=== PATIENT | female | born 1970 | race Caucasian/White ===

== ENCOUNTER 2017-01-24 14:56 | Emergency (ER) | payer OTHER ==
[2017-01-24 15:26] VITALS: BP 148/86
--- NOTE | 2017-01-24 16:48 | ED ---
Throat Pain/Nasal Congestion - HPI Summary HPI Summary: 46 yr old female with the complaint of right ear pain. Onset three days ago. Prior to this she has had runny nose, sinus pressue, cough, and also a UTI and was put on keflex Friday this week. yesterday her PMD called in cefdinir for ther right ear pain. The patient rates pain 9/10 right ear, and associated decreased hearing in that ear. She feels like she has an ear infection that may cause TM rupture. She has had TM rupture before. She would like another antibiotics since 3 dose of cefdinir has not made it better yet. She has allergies to amox and bactrim. - History of Current Complaint Chief Complaint: UCEar Time Seen by Provider: 01/24/17 16:02 - Allergies/Home Medications Allergies/Adverse Reactions: Allergies Allergy/AdvReac Type Severity Reaction Status Date / Time Amoxicillin Allergy Severe Hives Verified 01/24/17 15:19 Bee Venom Allergy Hives Verified 01/24/17 15:19 Sulfamethoxazole Allergy Itching Verified 01/24/17 15:19 w/Trimethoprim [From Bactrim] Home Medications: Home Medications Cefdinir [Cefdinir 300 MG CAP] 1 cap BID 01/24/17 [History Confirmed 01/24/17] Cephalexin CAP* [Keflex CAP*] 500 mg PO BID 01/24/17 [History Confirmed 01/24/17 ] Epinephrine [Epipen 2-Deep] 1 inj ONCE 01/24/17 [History Confirmed 01/24/17] PMH/Surg Hx/FS Hx/Imm Hx - Surgical History Surgery Procedure, Year, and Place: RIGHT ankle x2 Infectious Disease History: No Infectious Disease History: Denies: Traveled Outside the [place] in Last 30 Days - Family History Known Family History: Positive: Cardiac Disease, Diabetes - Social History Occupation: Employed Full-time Alcohol Use: Occasionally Substance Use Type: Reports: None Smoking Status (MU): Current Every Day Smoker Type: Cigarettes Amount Used/How Often: 1 PPD Review of Systems Negative: Fever, Chills Positive: Ear Ache, Nasal Discharge All Other Systems Reviewed And Are Negative: Yes Physical Exam Triage Information Reviewed: Yes Vital Signs On Initial Exam: Initial Vitals Temp Pulse Resp BP Pulse Ox 98.6 F 89 16 148/86 99 01/24/17 15:21 12/15/17 15:21 01/24/17 15:21 01/24/17 15:21 01/24/17 15:21 Vital Signs Reviewed: Yes Appearance: Positive: Well-Appearing Skin: Positive: Warm, Skin Color Reflects Adequate Perfusion Head/Face: Positive: Normal Head/Face Inspection Eyes: Positive: EOMI ENT: Positive: Pharyngeal erythema, TM bulging - right, TM red - right, Uvula midline Neck: Positive: Nontender Respiratory/Lung Sounds: Positive: Clear to Auscultation, Breath Sounds Present Cardiovascular: Positive: RRR. Negative: Murmur Abdomen Description: Positive: Nontender Musculoskeletal: Positive: Strength/ROM Intact Neurological: Positive: Sensory/Motor Intact, Alert, Oriented to Person Place, Time, CN Intact II-III, Normal Gait, Speech Normal Psychiatric: Positive: Normal - [place] Coma Scale Best Eye Response: 4 - Spontaneous Best Motor Response: 6 - Obeys Commands Best Verbal Response: 5 - Oriented Diagnostics - Vital Signs Vital Signs Temp Pulse Resp BP Pulse Ox 01/24/17 15:21 98.6 F 89 16 148/86 99 - Laboratory Lab Statement: Any lab studies that have been ordered have been reviewed, and results considered in the medical decision making process. EENT Course/Dx - Course Course Of Treatment: 46 yr old female with right OM. Cefdinir is what she is presently on for three doses. I am going to add Biaxin to the regimen. She is aware bert tif her TM perforates she needs to go to the ER. She will be given referral to ENT as well. - Diagnoses Provider Diagnoses: Otitis media, Hypertension Discharge - Discharge Plan Condition: Good Disposition: HOME Prescriptions: Clarithromycin TAB* [Biaxin 500 MG TAB*] 500 mg PO BID #20 tab Patient Education Materials: Otitis Media (ED), Hypertension (ED) Referrals: Tee Duarte MD [Medical Doctor] - 3 Days Solomon Aleman DO [Primary Care Provider] - 2 Days
--- OUTSIDE RECORDS SUMMARY | 2017-01-27 09:32 | XMS REPORT ---
:1970 External Reference #:[id number] Author Organization [facility] Address [address] [address] Phone [phone] Care Team Providers Name Role Phone Solomon Aleman DO Care Team Information Prison Classification Counselor Unavailable Payers Type Date Identification Numbers Payment Provider Subscriber Health Maintenance Policy Number: [id number] [facility] Marleny Hernandez Organization ([facility]: [id number] [address] [place] [address] Problems Date Description Provider Status Onset: 05/29/2011 Mixed hyperlipidemia Solomon Aleman DO Active Onset: 10/04/2010 Tobacco user Solomon Aleman DO Active Onset: 10/04/2010 Anxiety state Solomon Aleman DO Active Social History Type Date Description Comments Education Hightest level completed, 1 year of college Marital Status Single Occupation 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 active 04/15/2014 Bee Sting active Medications Medication Date Status Form Strength Qnty SIG Indications Ordering Provider Cephalexin 01/21/ Active Capsules 500mg 20cap 1 capsule Harpreet Aleman s by mouth katie Carbajal DO daily for 10 days Bupropion HCL 11/10/ Active Tablets 100mg 180ta 1 by F33.9 Ash 2016 bs mouth Solomon, twice a DO day Famciclovir 12/20/ Active Tablets 500mg 21tab 3 pills B00.1 Ash 2016 s at once Solomon, at onset DO of symptoms Epinephrine 08/19/ Active Solution 0.3mg/0.3 2unit use as . Zora , 2016 Auto-Inject ML s directed diana Davis PA allergic reaction Hydroxyzine HCL 07/19/ Active Tablets 10mg 30tab 1 tablet F41.9 Ash 2016 s by mouth Solomon, at night DO Ibuprofen 10/04/ Active Tablets 200mg 2 po q 4 Ash 2010 hours prn Solomon DO Diphenhydramine 10/04/ Active Tablets 25mg VALDO Aleman 2010 Solomon, DO Coconut Oil / Active Oil Unknown 0000 Flaxseed / Active Misc Unknown 0000 Escitalopram 08/19/ Hx Tablets 10mg 60tab 2 by F41.9 Zora Oxalate 2017 - s mouth Susan, 08/19/ every day PA 2016 Escitalopram 08/19/ Hx Tablets 20mg 30tab 1 tablet F33.9 Ash, Oxalate 2017 - s by mouth Solomon, 12/20/ daily DO 2016 Escitalopram 07/19/ Hx Tablets 10mg 30tab 1 tablet F41.9 Zora, Oxalate 2017 - s by mouth Susan, 08/19/ once PA 2016 daily Fluticasone 02/17/ Hx Suspension 50mcg/Act 16gm 1 spray J01.90 Ash, Propionate 2015 - each Solomon, 02/27/ nostril DO 2015 twice a day Doxycycline 02/17/ Hx Capsules 100mg 20cap 1 by J01.90 Ash, Hyclate 2015 - s mouth Solomon, 02/27/ twice a DO 2015 day x 10 days Cyclobenzaprine 10/12/ Hx Tablets 5mg 60tab take 1 - Ash HCL 2013 - s 2 tablets Solomon, 07/19/ by mouth DO 2016 every night at bedtime as needed muscle spasm- caution sedation Epinephrine 08/31/ Hx Solution 0.3mg/0.3 1Unit use as Zora 2012 - Auto-Inject ML s needed Susan 08/10/ for bee PA 2017 stings Immunizations CPT Code Status Date Vaccine Reaction Lot # 33581 Given 12/20/2016 Influenza Vac, 3 Yrs & Older, Quadrivalent, [place] [address] Given 01/05/2014 Afluria Or Fluvirin Flu Vac Intramuscular [facility] 41234 Given 11/12/2011 Afluria Or Fluvirin Flu Vac Intramuscular 56755 Given 10/04/2010 Tdap (Adacel) Ages 7 And Above Only Vital Signs Date Vital Result Comment 01/21/2017 Weight 214.00 lb Heart Rate 74 /min BP Systolic 132 mmHg BP Diastolic 70 mmHg Respiratory Rate 18 /min Height 66.75 inches 5'6.75" 09/19/16 BMI (Body Mass Index) 33.8 kg/m2 12/20/2016 Weight 212.00 lb Heart Rate 72 /min BP Systolic 126 mmHg BP Diastolic 74 mmHg Respiratory Rate 18 /min Height 66.75 inches 5'6.75" 09/19/16 BMI (Body Mass Index) 33.4 kg/m2 09/19/2016 Weight 201.00 lb Heart Rate 80 /min BP Systolic 112 mmHg BP Diastolic 70 mmHg Respiratory Rate 18 /min Height 66.75 inches 5'6.75" 09/19/16 BMI (Body Mass Index) 31.7 kg/m2 08/19/2016 Weight 198.00 lb Heart Rate 72 /min BP Systolic 132 mmHg BP Diastolic 72 mmHg Respiratory Rate 18 /min Height 66.75 inches 5'6.75" BMI (Body Mass Index) 31.2 kg/m2 07/19/2016 Weight 192.00 lb Heart Rate 92 /min BP Systolic 172 mmHg BP Diastolic 92 mmHg Respiratory Rate 18 /min Height 66.75 inches 5'6.75" BMI (Body Mass Index) 30.3 kg/m2 02/17/2015 Body Temperature 99.5 F Weight 195.00 lb Heart Rate 110 /min BP Systolic 130 mmHg BP Diastolic 80 mmHg Respiratory Rate 18 /min Height 66.75 inches 5'6.75" (10/2013) O2 % BldC Oximetry 97 % BMI (Body Mass Index) 30.8 kg/m2 04/18/2014 Weight 192.00 lb Heart Rate 72 /min BP Systolic 120 mmHg BP Diastolic 80 mmHg Respiratory Rate 18 /min Height 66.75 inches 5'6.75" (10/2013) BMI (Body Mass Index) 30.3 kg/m2 10/12/2013 Weight 189.00 lb Heart Rate 100 /min BP Systolic 132 mmHg BP Diastolic 84 mmHg Respiratory Rate 18 /min Height 66.75 inches 5'6.75" (10/2013) 08/16/2013 Body Temperature 98.0 F Weight 190.00 lb Heart Rate 70 /min BP Systolic 130 mmHg BP Diastolic 80 mmHg Respiratory Rate 18 /min Height 66.75 inches 5'6.75" 08/09/2013 Body Temperature 98.6 F Weight 191.00 lb Heart Rate 70 /min BP Systolic 140 mmHg BP Diastolic 72 mmHg Respiratory Rate 18 /min Height 66.75 inches 5'6.75" 08/05/2013 Body Temperature 99.2 F Weight 193.00 lb Heart Rate 72 /min BP Systolic 130 mmHg BP Diastolic 78 mmHg Respiratory Rate 18 /min Height 66.75 inches 5'6.75" 07/28/2013 Weight 190.00 lb Heart Rate 100 /min BP Systolic 166 mmHg BP Diastolic 80 mmHg Respiratory Rate 18 /min Height 66.75 inches 5'6.75" 06/09/2013 Body Temperature 99.3 F Weight 195.00 lb Heart Rate 88 /min BP Systolic 130 mmHg BP Diastolic 80 mmHg Respiratory Rate 18 /min Height 66.75 inches 5'6.75" 11/06/2012 Body Temperature 97.8 F Weight 184.44 lb Heart Rate 130 /min BP Systolic 128 mmHg BP Diastolic 84 mmHg Respiratory Rate 18 /min Height 66.75 inches 5'6.75" O2 % BldC Oximetry 95 % 08/31/2012 Body Temperature 99.0 F Weight 183.00 lb Heart Rate 84 /min BP Systolic 130 mmHg BP Diastolic 80 mmHg Respiratory Rate 18 /min Height 66.75 inches 5'6.75" 12/05/2011 Weight 176.12 lb Heart Rate 84 /min BP Systolic 128 mmHg BP Diastolic 82 mmHg Respiratory Rate 16 /min Height 66.75 inches 5'6.75" 05/29/2011 Weight 181.50 lb Heart Rate 90 /min BP Systolic 106 mmHg BP Diastolic 74 mmHg Respiratory Rate 16 /min Height 66.75 inches 5'6.75" 11/09/2010 Weight 181.12 lb Heart Rate 108 /min BP Systolic 100 mmHg BP Diastolic 70 mmHg Respiratory Rate 17 /min Height 66.75 inches 5'6.75" 10/04/2010 Weight 185.25 lb BP Systolic 132 mmHg BP Diastolic 86 mmHg Respiratory Rate 17 /min Height 66.75 inches 5'6.75" Results Test Date Test Result H/L Range Note Laboratory test 01/21/2017 Cytology Fluid <pending> finding Specimen -RL Laboratory test 01/21/2017 Urine Culture <pending> finding CBC With Auto Diff 07/19/2016 WBC 11.6 K/uL High 4.1-11.0 1 RBC 4.72 M/uL 4.00-5.40 1 Hemoglobin 14.8 gm/dL 12.0-16.0 1 Hematocrit 43.6 % 36.0-47.0 1 MCV 92.3 fL 80.0-97.0 1 MCH 31.4 pg 27.0-32.0 1 MCHC 34.0 g/dL 32.0-36.0 1 RDW 13.4 % 11.5-14.5 1 PLT Count 369 K/ul 140-400 1 Neutrophil 63.7 % 35.0-75.0 1 Lymphocyte 29.5 % 16.0-52.0 1 Monocyte 5.1 % 2.0-10.0 1 Eosinophil 1.0 % 0.0-5.0 1 Basophil 0.7 % 0.0-4.0 1 Abs Neutrophils 7.4 K/uL 2.1-8.0 1 Abs Lymphocytes 3.4 K/uL 0.8-5.5 1 Abs Monocytes 0.6 K/uL 0.1-1.0 1 Abs Eosinophils 0.1 K/uL 0.0-0.5 1 Abs Basophils 0.1 K/uL 0.0-0.3 1 Comprehensive Metabolic (CMP) 07/19/2016 Sodium 143 mmol/L 135-146 1, 2 Potassium 4.5 mmol/L 3.5-5.2 1 Chloride# 109 mmol/L 97-110 1, 3 Carbon Dioxide 24 mmol/L 24-34 1 Glucose 109 mg/dL High 70-105 1 BUN 13 mg/dL 6-26 1 Creatinine 0.8 mg/dL 0.5-1.4 1 Calcium 9.7 mg/dL 8.5-10.2 1 Total Protein 7.3 g/dL 6.0-8.0 1 Albumin 4.5 g/dL 3.6-4.9 1 Globulin 2.8 g/dL 2.0-3.5 1 A/G Ratio 1.6 Ratio 1.0-2.2 1 Total Bilirubin 0.4 mg/dL 0.1-1.3 1 Alkaline Phosphatase 66 U/L 24-140 1 Alt 28 U/L 3-42 1 Ast 15 U/L 8-42 1 Dayana Egfr >60 >60 1, 4 Non Dayana Egfr >60 >60 1, 5 Anion Gap 15 mmol/L 7-16 1, 6 Lipid Treatment 04/11/2014 Cholesterol 253 mg/dL High 50-199 7 Triglycerides 107 mg/dL 30-200 7 HDL 43 mg/dL 35-85 7, 8 Chol/ HDL Ratio 5.9 ratio High 3.7-5.6 7 VLDL 21 mg/dL 2-29 7 LDL (Calc) 189 mg/dL High 20-99 7, 9 Alt 16 U/L 3-42 7 Ast 24 U/L 8-42 7 Laboratory test finding 10/12/2013 Cortisol,Am 8.67 g/dL 4.30-22.40 10 Folate > 20 ng/mL High 6.0-15.4 11 TSH 0.50 uIU/ml 0.50-6.00 Vitamin B12 429.0 pg/mL 200.0-900.0 Laboratory test finding 10/05/2013 % Baso. 1.3 % 0.0-2.0 % Eos. 1.1 % 0.0-4.0 % Lymph 30 % 20-44 % Crane 6.5 % 2.0-10.0 % Bianca 61 % 50-70 Absolute Baso. 0.1 K/ul 0.0-0.3 Absolute Eos. 0.1 K/ul 0.0-0.5 Absolute Lymph. 2.9 K/ul 0.8-4.8 Absolute Crane. 0.6 K/ul 0.1-1.0 Absolute Bianca. 5.91 K/ul 2.05-7.63 Alt 26.0 U/L 9.0-52.0 Antinuclear Abs Ifa Negative . 12 Ast 17.0 U/L 14.0-36.0 BUN 9.0 mg/dL 7.0-18.0 BUN/Creat Ratio 12.9 ratio 12.0-20.0 C-Reactive Protein,Quant < 2.9 mg/L 0.0-4.9 13 Calcium 9.2 mg/dL 8.7-10.5 Chloride 107.0 mmol/L 98.0-107.0 Co2 21.0 mmol/L Low 22.0-30.0 Creatinine-Serum 0.7 mg/dL 0.7-1.2 Esr Sedrate 21.0 sec 0.0-25.0 Glucose 101.0 mg/dL 75.0-110.0 HCT 41.3 % 37.0-51.0 HGB 14.9 Gm/dl 12.0-16.0 MCH 32.2 pg High 26.0-32.0 MCHC 36.1 g/dL High 31.0-36.0 MCV 89.2 Fl 80.0-97.0 MPV 5.2 fL Low 6.0-10.0 PLT 404 K/ul 140-440 Potasium 4.1 mmol/L 3.6-5.0 RBC 4.6 M/ul 4.2-6.3 RDW 12.0 % 11.5-14.5 Sodium 140.0 mmil/L 137.0-145.0 WBC 9.6 K/ul 4.1-10.9 eGFR 97.1 Lipid Panel 10/05/2013 Chol/HDL Ratio 6.6 ratio Cholesterol 251.0 mg/dL High 50.0-199.0 HDL 38.0 mg/dL 29.0-86.0 LDL, Calculated 178.0 mg/dL High 20.0-129.0 Triglycerides 175.0 mg/dL 30.0-249.0 vLDL 35.0 ng/dL Laboratory test finding 08/16/2013 % Baso. 1.0 % 0.0-2.0 % Eos. 1.0 % 0.0-4.0 % Lymph 31 % 20-44 % Crane 5.3 % 2.0-10.0 % Bianca 62 % 50-70 A/G Ratio 1.5 ratio Low 1.6-2.2 Absolute Baso. 0.1 K/ul 0.0-0.3 Absolute Eos. 0.1 K/ul 0.0-0.5 Absolute Lymph. 3.3 K/ul 0.8-4.8 Absolute Crane. 0.6 K/ul 0.1-1.0 Absolute Bianca. 6.68 K/ul 2.05-7.63 Albumin 4.5 g/dL 3.5-5.0 Alk. Phos. 74.0 U/L 30.0-126.0 Alt 19.0 U/L 9.0-52.0 Anion Gap 9.0 mmol/L Low 10.0-20.0 Ast 16.0 U/L 14.0-36.0 BUN 10.0 mg/dL 7.0-18.0 BUN/Creat Ratio 14.3 ratio 12.0-20.0 Calcium 9.2 mg/dL 8.7-10.5 Chloride 110.0 mmol/L High 98.0-107.0 Co2 20.0 mmol/L Low 22.0-30.0 Creatinine-Serum 0.7 mg/dL 0.7-1.2 Esr Sedrate 15.0 sec 0.0-25.0 Globulin 3.0 g/dL 2.7-4.3 Glucose 77.0 mg/dL 75.0-110.0 HCT 44.1 % 37.0-51.0 HGB 15.4 Gm/dl 12.0-16.0 MCH 31.7 pg 26.0-32.0 MCHC 34.9 g/dL 31.0-36.0 MCV 91.0 Fl 80.0-97.0 MPV 5.1 fL Low 6.0-10.0 PLT 439 K/ul 140-440 Potasium 4.5 mmol/L 3.6-5.0 RBC 4.8 M/ul 4.2-6.3 RDW 11.6 % 11.5-14.5 Sodium 139.0 mmil/L 137.0-145.0 Total Bilirubin 0.3 mg/dL 0.2-1.3 Total Protein 7.5 g/dL 6.3-8.2 WBC 10.8 K/ul 4.1-10.9 eGFR 104.1 mi/minper1.73 14 Rheumatoid Factor Screen Negative Negative Antinuclear Abs Ifa 08/16/2013 Antinuclear Antibodies, Ifa See patterns . 15 Note See Note 16 Speckled Pattern 1:80 . Laboratory test finding 08/16/2013 Rheumatoid Factor Negative Negative Screen Antinuclear Abs Ifa 08/16/2013 Antinuclear Antibodies, See patterns . 17 Ifa Note See Note 18 Speckled Pattern 1:80 . Laboratory test finding 08/09/2013 % Baso. 0.9 % 0.0-2.0 % Eos. 0.7 % 0.0-4.0 % Lymph 19 % Low 20-44 % Crane 4.3 % 2.0-10.0 % Bianca 75 % High 50-70 A/G Ratio 1.5 ratio Low 1.6-2.2 Absolute Baso. 0.1 K/ul 0.0-0.3 Absolute Eos. 0.1 K/ul 0.0-0.5 Absolute Lymph. 2.2 K/ul 0.8-4.8 Absolute Crane. 0.5 K/ul 0.1-1.0 Absolute Bianca. 8.30 K/ul High 2.05-7.63 Albumin 4.4 g/dL 3.5-5.0 Alk. Phos. 80.0 U/L 30.0-126.0 Alt 19.0 U/L 9.0-52.0 Anion Gap 12.0 mmol/L 10.0-20.0 Ast 15.0 U/L 14.0-36.0 BUN 10.0 mg/dL 7.0-18.0 BUN/Creat Ratio 12.5 ratio 12.0-20.0 Calcium 9.4 mg/dL 8.7-10.5 Chloride 105.0 mmol/L 98.0-107.0 Co2 20.0 mmol/L Low 22.0-30.0 Creatinine-Serum 0.8 mg/dL 0.7-1.2 Globulin 2.9 g/dL 2.7-4.3 Glucose 182.0 mg/dL High 75.0-110.0 HCT 43.0 % 37.0-51.0 HGB 14.9 Gm/dl 12.0-16.0 MCH 32.0 pg 26.0-32.0 MCHC 34.6 g/dL 31.0-36.0 MCV 92.6 Fl 80.0-97.0 MPV 5.1 fL Low 6.0-10.0 PLT 360 K/ul 140-440 Potasium 4.4 mmol/L 3.6-5.0 RBC 4.6 M/ul 4.2-6.3 RDW 12.0 % 11.5-14.5 Sodium 137.0 mmil/L 137.0-145.0 Total Bilirubin 0.5 mg/dL 0.2-1.3 Total Protein 7.3 g/dL 6.3-8.2 WBC 11.1 K/ul High 4.1-10.9 eGFR 90.4 mi/minper1.73 19 Laboratory test finding 07/28/2013 Antibody Detection See Note 20 FSH 11.0 mIU/mL 21 Luteinizing Hormone 30.6 mIU/mL 22 Thyroid Stim Hormone 1.15 uIU/mL 0.49-4.67 Laboratory test finding 07/09/2013 Hematocrit 42.3 % 36.0-46.1 Hemoglobin 14.9 gm/dL 11.6-15.8 Mean Cell Volume 93.2 fl 80.9-99.0 Mean Corpuscular HGB 32.8 pg High 25.9-32.7 Mean Corpuscular HGB Conc 35.2 g/dL High 30.8-34.3 Mean Platelet Volume 8.9 fL 8.9-12.4 Platelet Count 359 K/uL 155-360 Red Blood Count 4.54 M/uL 3.90-5.40 Red Cell Distri Width %CV 13.2 % 11.7-14.4 White Blood Count 8.4 K/uL 3.1-10.7 Lipid Panel 09/18/2012 Chol/HDL Ratio 6.2 ratio Cholesterol 278.0 mg/dL High 50.0-199.0 HDL 45.0 mg/dL 29.0-86.0 LDL, Calculated 206.4 mg/dL High 20.0-129.0 Triglycerides 133.0 mg/dL 30.0-249.0 vLDL 26.6 ng/dL Lipid Panel 03/10/2012 Chol/HDL Ratio 5.9 ratio Cholesterol 260.0 mg/dL High 50.0-199.0 HDL 44.0 mg/dL 29.0-86.0 LDL, Calculated 192.0 mg/dL High 20.0-129.0 Triglycerides 120.0 mg/dL 30.0-249.0 vLDL 24.0 ng/dL Laboratory test finding 11/28/2011 Alt 29 U/L 9-52 23 Ast 20 U/L 14-36 23 Lipid Panel 11/28/2011 Chol/HDL Ratio 6.4 23, 24 Cholesterol 285 mg/dL High 50-199 23 HDL Cholesterol 44 mg/dL 29-86 23 LDL 202 mg/dL High 20-129 23 Triglycerides 193 mg/dL 30-249 23 VLDL Cholesterol 39 mg/dL 23 Laboratory test finding 07/26/2011 Absolute Basophils 0.155 K/ul 0.0-0.3 Absolute Eosinophils 0.123 K/ul 0.0-0.5 Absolute Lymphocytes 2.94 K/ul 0.8-4.8 Absolute Monocytes 0.697 K/ul 0.1-1.0 Absolute Neutrophils 6.26 K/ul 2.05-7.63 Basophil 1.5 % 0-2 Eosinophil 1.2 % 0-4 Hematocrit 48.1 % 37.0-51.0 Hemoglobin 15.4 GM/dl 12.0-16.0 Lymphocytes 28.9 % 20-44 MCH 29.9 pg 26.0-32.0 MCHC 32.1 g/dL 31.0-36.0 MCV 93 FL 80-97 Monocytes 6.9 % 2-10.0 Neutrophils 61.5 % 50-70 Platelet Count 315 K/ul 140-440 RBC 5.16 M/ul 4.2-6.3 RDW 11.4 % Low 11.5-14.5 WBC 10.2 K/ul 4.1-10.9 Laboratory test finding 05/29/2011 Atypical Lymph% 1 % 0-7 Basophil% 1 % 0-2 Eosinophil% 1 % 0-5 Hematocrit 46.0 % 36.0-46.1 Hemoglobin 15.3 gm/dL 11.6-15.8 Lymph% 41 % 17-56 Mean Cell Volume 94.7 fl 80.9-99.0 Mean Corpuscular HGB 31.5 pg 25.9-32.7 Mean Corpuscular HGB Conc 33.3 g/dL 30.8-34.3 Mean Platelet Volume 9.1 fL 8.9-12.4 Monocyte% 10 % 0-10 Neutrophils% 46 % 33-73 Platelet Count 395 K/uL High 155-360 Platelet Estimate Normal RBC Morphology Normal Red Blood Count 4.86 M/uL 3.90-5.40 Red Cell Distri Width %CV 13.4 % 11.7-14.4 Sedimentation Rate 1 mm/hr 0-20 Total Cells Counted 100 #CELLS White Blood Count 11.8 K/uL High 3.1-10.7 1 Fastin hours 2 Updated reference range on new analyzer 3 Updated reference range on new analyzer 4 Concerning GFR Guidelines for Americans: Normal function or mild renal disease, if clinically at risk: >/=60 mL/min Moderately decreased: 30-59 Severely decreased: 15-29 Renal failure: <15 5 Concerning GFR Guidelines: Normal function or mild renal disease, if clinically at risk: >/=60 mL/min Moderately decreased: 30-59 Severely decreased: 15-29 Renal failure: <15 Glomerular Filtration Rate (GFR) is estimated based on the MDRD equation, which assumes a steady state for creatinine as recommended by the National Kidney Disease Education Program in conjunction with the National Institutes of Health and the National Kidney Foundation. Clinical conditions in which it may be necessary to measure GFR by using clearance methods include extremes of age and body size, severe malnutrition or obesity, diseases of skeletal muscle, paraplegia or quadriplegia, vegetarian diet, rapidly changing kidney function, and calculation of the dose of potentially toxic drugs that are excreted by the kidneys. 6 Updated reference range on new analyzer 7 6 MONTHS 8 Per NCEP ATP III Guidelines: Results lower than 40 mg/dL are suggestive of increased risk for coronary artery disease. Results > or=to 60 mg/dL are considered a negative risk factor. 9 Per NCEP ATP III Guidelines: Normal Population <130 Patients with medical conditions: CHD/DM Optimal: <100 Borderline high: 130-159 High: 160-189 Very high: >189 10 today 11 ERR= 12 Negative <1:80 Borderline 1:80 Positive >1:80 Performed at: RN - [facility] [id number] Interior Plant Caretaker: Norma Loja MD, Phone: [phone] 13 FASTING 14 For -Greek patients multiply result by 1.180 15 Negative <1:80 Borderline 1:80 Positive >1:80 16 A positive SABI result may occur in healthy individuals or be associated with a variety of diseases. See interpre- tation below: Pattern Antigen Detected Suggested Disease Association Homogeneous DNA(ds,ss,), High titers - SLE ( Smooth) Histone Speckled Sm, [employer]IVIL [employer]ORY TECHNICIAN, SCL-70, SLE,MCTD,Scleroderma,Sjogrens SS-A/SS-B ---- Nucleolar SCL-70, PM-1/SCL High titers Scleroderma Poly- myositis/Scleroderma Overlap Centromere Centromere PSS w/Crest syndrome variable Performed at: RN - [facility] [id number] Interior Plant Caretaker: Norma Loja MD, Phone: [phone] 17 Negative <1:80 Borderline 1:80 Positive >1:80 18 A positive SABI result may occur in healthy individuals or be associated with a variety of diseases. See interpre- tation below: Pattern Antigen Detected Suggested Disease Association Homogeneous DNA(ds,ss,), High titers - SLE ( Smooth) Histone Speckled Sm, CIVIL LABORATORY TECHNICIAN, SCL-70, SLE,MCTD,Scleroderma,Sjogrens SS-A/SS-B ---- Nucleolar SCL-70, PM-1/SCL High titers Scleroderma Poly- myositis/Scleroderma Overlap Centromere Centromere PSS w/Crest syndrome variable Performed at: RN - [facility] [address] [id number] Interior Plant Caretaker: Norma Loja MD, Phone: [phone] 19 For -Greek patients multiply result by 4.979 20 No reportable results 21 NORMALLY MENSTRUATING FEMALES: Follicular Phase:...............4-13 mIU/mL Mid-Cycle Peak:.................5-22 mIU/mL Luteal Phase:...................2 -13 mIU/mL Postmenopausal Female:........20-138 mIU/mL 22 NORMALLY MENSTRUATING FEMALES: Follicular Phase.............1-18 mIU/mL Mid -Cycle Peak.............24-105 mIU/mL Luteal Phase...............0.4-20 mIU/mL Postmenopausal .............15-62 mIU/mL 23 FASTING 6 MONTHS 24 Normal Range: Male: <4.98 Female: <4.45 Procedures Date CPT Code Description Status 02/17/2015 25590 Measure Blood Oxygen Level Single Determination Completed 11/06/2012 53516 Measure Blood Oxygen Level Single Determination Completed 11/06/2012 18989 Electrocardiogram Complete Completed 10/04/2010 02995 Visual Screening Test Completed 10/04/2010 76972 Screening Hearing Test Completed 07/11/2010 Mammogram Completed 55637 Mammography Unilateral Completed Encounters Type Date Location Provider CPT E/M Dx Office Visit 12/20/2016 8:00a [facility] [place] [address] F33.9 F41.9 B00.1 Office Visit 09/19/2016 8:30a [facility] [place] [address] F33.9 F41.9 Office Visit 08/19/2016 8:00a [facility] [place] [address] F41.9 Office Visit 07/19/2016 8:15a [facility] [place] [address] F41.9 F33.9 Office Visit 02/17/2015 9:30a [facility] [place] [address] J01.90 Office Visit 04/18/2014 8:45a [facility] [place] [address] 272.2 719.47 305.1 726.19 381.81 Plan of Care Future Appointment(s):04/21/2017 8:00 am - Susan Blakely PA at [facility]2016 - Susan Blakely, PAF41.9 Anxiety disorder, unspecifiedComments:Doing well on bupropionContinue current treatmentCall with any worsening symptomsFollow up:3 [id number] Acute upper respiratory infection, unspecifiedComments:Suspect viralContinue supportive careCall if symptoms worsen or [id number] Other microscopic hematuriaComments:Will send urine for culture and cytologyWill empirically treat with keflexAllNew Medication: Cephalexin 500 mg
== END 2017-01-24 16:31 | disposition home or self-care (01) ==
LOC: UCCORT 14:56
DX: H66.91 Otitis media, unspecified, right ear (principal); I10 Essential (primary) hypertension; Z88.0 Allergy status to penicillin; F17.210 Nicotine dependence, cigarettes, uncomplicated
CPT/HCPCS: 99212; G0463